=== PATIENT | male | born 1985 | race Caucasian/White ===

== ENCOUNTER 2023-09-27 20:52 | Emergency (ER) | payer OTHER, MEDICAID ==
[~2023-09-27] VITALS: Ht 190.5 cm; Wt 127.3 kg
[2023-09-27 20:57] VITALS: TEMP 98
[2023-09-27] MEDS ORDERED: iohexol 300mg/ml 100ml inj. ONE (21:22)
[2023-09-27 21:30] LABS: BASOPHILS # (AUTO) 0.1 X10'3 (0-0.2); BASOPHILS % (AUTO) 0.4 % (0-1); EOSINOPHILS # (AUTO) 0.1 X10'3 (0-0.9); EOSINOPHILS % (AUTO) 0.3 % (0-6); HEMATOCRIT 48.1 % (42.0-52.0); HEMOGLOBIN 15.9 g/dl (14.0-17.9); LYMPHOCYTES # (AUTO) 2.2 X10'3 (1.1-4.8); LYMPHOCYTES % (AUTO) 10.5 % (21-51); MEAN CORPUSCULAR HEMOGLOBIN 28.1 PG (27.0-31.0); MEAN CORPUSCULAR HGB CONC 33.1 g/dL (33.0-36.5); MEAN CORPUSCULAR VOLUME 84.9 FL (78-98); MEAN PLATELET VOLUME 8.8 FL (7.4-10.4); MONOCYTES % (AUTO) 4.6 % (2-12); NEUTROPHILS # (AUTO) 17.5 X10'3 (1.8-7.7); NEUTROPHILS % (AUTO) 84.2 % (42-75); PLATELET COUNT 381 X10'3 (140-440); RED BLOOD COUNT 5.67 X10'6 (4.70-6.10); RED CELL DISTRIBUTION WIDTH 14.8 % (11.5-14.5); WHITE BLOOD COUNT 20.7 X10'3 (4.5-11.0)
[2023-09-27 21:48] LABS: ALBUMIN 4.2 G/DL (3.4-5.0); ANION GAP 9 (8-16); BLOOD UREA NITROGEN 15 MG/DL (7-18); BUN/CREATININE RATIO 12.3 (10.0-20.0); CALCIUM 9.2 MG/DL (8.5-10.1); CHLORIDE 102 MMOL/L (99-107); CREATININE 1.22 MG/DL (0.60-1.10); GLUCOSE 100 MG/DL (70-104); POTASSIUM 3.5 MMOL/L (3.5-5.1); SODIUM 139 MMOL/L (135-145); TOTAL CARBON DIOXIDE 28.4 MMOL/L (24-32); eCRCL 96 ML/MIN; eGFR 66 ML/MIN
[2023-09-27 23:00] LABS: ALANINE AMINOTRANSFERASE 36 U/L (12-78); ALKALINE PHOSPHATASE 80 IU/L (46-116); ASPARTATE AMINO TRANSFERASE 26 U/L (10-37); BILIRUBIN,TOTAL 0.5 MG/DL (0.1-1.0); TOTAL PROTEIN 8.6 G/DL (6.4-8.2)
[2023-09-27 23:19] LABS: BILIRUBIN,DIRECT 0.2 MG/DL (0-0.3)
[2023-09-28] MEDS: ibuprofen tablet 400 MG TABLET PO ONE (00:35)
[2023-09-28] MEDS: acetaminophen 325mg tablet PO ONE (00:36)
[2023-09-28 01:54] VITALS: BP 133/82; PULSE 98; RESP 13; O2SAT 100
[2023-09-28] MEDS ORDERED: IBUP-1984 PO (01:58)
== END 2023-09-28 02:05 | disposition home or self-care (01) ==
LOC: ER 20:52
DX: M54.2 Cervicalgia (principal); M54.9 Dorsalgia, unspecified; M25.519 Pain in unspecified shoulder; M79.602 Pain in left arm; M79.10 Myalgia, unspecified site; Z88.0 Allergy status to penicillin; Z90.49 Acquired absence of other specified parts of digestive tract; V99.XXXA Unspecified transport accident, initial encounter; Y93.89 Activity, other specified; Y92.89 Other specified places as the place of occurrence of the external cause; Y99.8 Other external cause status
CPT/HCPCS: 36415; 70450; 71260; 72125; 74177; 80048; 80076; 84484; 85025; 93005; 99285; J3490; Q9967